=== PATIENT | female | born 1955 | race Caucasian/White ===

== ENCOUNTER 2020-04-21 04:33 | Inpatient (IN) ==
[2020-04-21] MEDS ORDERED: IOPAMIDOL 100 ML BOTTLE IV ONE (04:34)
--- NOTE | 2020-04-21 05:09 | XRay Report ---
CLINICAL INFORMATION: Chest Pain COMPARISON: Two view chest x-ray 09/26/2016 FINDINGS: The heart is normal for technique. Mediastinum and pulmonary vessels are normal. Lungs are clear. No effusions. IMPRESSION: Negative Interpreted and Authenticated by: Hans Saldivar 04/21/20
[2020-04-21 05:29] LABS: Basophils # (Auto) 0.05 K/mcL (0.00-0.30); Basophils % (Auto) 0.8 % (0.0-2.0); Eosinophils # (Auto) 0.24 K/mcL (0.00-0.70); Eosinophils % (Auto) 4.1 % (0.0-7.0); Granulocytes % (Auto) 58.8 % (38.0-78.0); Hematocrit 23.2 % (34.1-44.9); Hemoglobin 6.3 g/dL (11.2-15.7); Lymphocytes # (Auto) 1.64 K/mcL (1.50-4.80); Lymphocytes % (Auto) 27.7 % (15.5-49.0); Mean Cell Volume 74.4 fL (80.0-100.0); Mean Corpuscular HGB Conc 27.2 g/dL (31.0-36.0); Mean Platelet Volume 9.7 fL (7.4-10.4); Monocytes # (Auto) 0.51 K/mcL (0.10-0.90); Monocytes % (Auto) 8.6 % (1.0-12.0); Platelet Count 316 K/mcL (140-440); RBC 3.12 M/mcL (3.59-5.38); Red Cell Distribution Width 17.3 % (11.5-14.5); WBC 5.9 K/mcL (4.50-11.00)
[2020-04-21 05:43] LABS: ALT/SGPT 10 U/l (0-40); AST/SGOT 19 U/l (0-37); Albumin 3.5 gm/dL (3.2-5.2); Albumin/Globulin Ratio 1.3 (1.0-2.3); Alkaline Phosphatase 157 U/L (39-117); Bilirubin,Total 0.3 mg/dL (0.0-1.0); Blood Urea Nitrogen 14 mg/dl (8-23); Calcium 8.8 mg/dl (8.6-10.4); Carbon Dioxide 23 mmol/L (22-30); Chloride 104 mmol/L (96-108); Globulin 2.6 gm/dL (2.2-3.7); Glomerular Filtration Rate 52; Glucose 98 mg/dL (70-105)
[2020-04-21] MEDS ORDERED: PHENobarb/HYOSCY/ATROPINE/SCOP 1 DOSE BOTTLE PO ONE (05:54)
[2020-04-21] MEDS ORDERED: PANTOPRAZOLE 40 MG VIAL IV ONE ×3 (05:54→20:37)
--- NOTE | 2020-04-21 05:57 | Emergency Department Note ---
Chest Pain HPI - General Chief Complaint: Chest Pain Stated Complaint: chest pain Time Seen by Provider: 04/21/20 05:16 Source: patient Mode of arrival: ambulatory Limitations: no limitations - History of Present Illness HPI Narrative: This pleasant 64-year-old awoke around 130 or 2 with chest pain that is at the bottom of her sternum area or epigastric area and she rates it now 6/10 and still having it. She thought it was heartburn or indigestion. There is some radiation to the left shoulder but no radiation to the neck, jaw, back or down the arm. There is some accompanying shortness of breath. She called EMS which did an EKG that was okay/unremarkable. She then drove herself here. It is hard to take a deep breath due to discomfort. Tums did not make any difference in her pains. No prior history of myocardial infarction or stroke. - Related Data Home Medications Medication Instructions Recorded Confirmed Naproxen Sodium 440 mg PO TID PRN 04/21/20 04/21/20 Previous Rx's Medication Instructions Recorded aripiprazole 30 mg tablet 30 mg PO QHS #30 tab 01/25/20 clonazepam 2 mg tablet 4 mg PO QHS #60 tab 01/25/20 lamotrigine 200 mg tablet 200 mg PO QHS #30 tab 01/25/20 Allergies Allergy/AdvReac Type Severity Reaction Status Date / Time codeine Allergy Severe Swelling Verified 03/29/20 14:25 of Lip/Tongue/Throat Review of Systems Constitutional: Reports: chills (Just this last night.). Denies: fever, sweats ENT ED: Denies: throat pain, rhinorrhea Cardiovascular: Denies: palpitations Respiratory: Denies: cough, wheezes Gastrointestinal: Denies: abdominal pain, nausea, vomiting, diarrhea, constipation Musculoskeletal: Reports: other (Because of pain in the left ankle foot area from surgery this last December she uses a cane. Has had some extremity swelling more in the left side than the right she again attributes to the previous ankle fracture and surgery. This is attended to by Dr. Lockett, [facility].). Denies: back pain Neurological: Denies: headache, weakness, dizziness Hematological/Lymphatic: Reports: other (Denies history of iron deficiency or taking iron but iron deficiency anemia is in her problem list.) Chest Pain PMH - Past Medical History [facility] Narrative: Medical History (Last Updated 04/21/20 @ 05:28 by Tj Mejia DO) Generalized anxiety disorder (Chronic) History of panic attacks (Inactive) PTSD (post-traumatic stress disorder) (Chronic) Bipolar II disorder (Chronic) Hypertension (Chronic) Iron deficiency anemia (Chronic) Acute onset of severe vertigo (Resolved) DNR per pt discussion 04/21/2020 Past Surgical History (Last Updated 04/21/20 @ 06:00 by Tj Mejia DO) History of cholecystectomy (Acute) History of gastric bypass (Chronic 1996) Family History (Last Reviewed 03/29/20 @ 14:25 by Chin Perez MD) Father Myocardial infarction Heart disease Mother Malignant tumor of colon Sister Alcohol abuse Medical history: Reports: hypertension Psychiatric history: Reports: bipolar - Social History smoking status: Never smoker Alcohol use: Reports: None Drug use: Reports: none. Denies: marijuana Physical Exam Limitations: no limitations General appearance: alert, in no apparent distress, nontoxic, other (morbidly overweight, mostly abdominal.) Head: atraumatic, normocephalic Eye: Present: EOMI ENT: Present: mucous membranes moist Neck: Present: trachea midline. Absent: lymphadenopathy, thyromegaly Chest: Present: symmetric chest wall rise Respiratory: Present: normal lung sounds bilaterally. Absent: respiratory distress, wheezes, stridor, accessory muscle use, prolonged expiratory phase Cardiovascular: Present: regular rate, normal rhythm. Absent: tachycardia, systolic murmur, diastolic murmur Abdominal: Present: soft, tenderness ( subjective to palpation). Absent: distention, guarding, rebound, rigidity, organomegaly, mass Abdominal tenderness: Present: epigastrium, mild Rectal: Present: heme (-) stool, hemorrhoids (External with old clotted fibrosed at 12:00 moderate to large). Absent: decreased rectal tone, black stool, bloody stool, fecal impaction Extremities: Present: pedal edema (Slight or mild). Absent: pretibial edema, calf tenderness, cyanosis, clubbing Back: Absent: CVA tenderness (R), CVA tenderness (L), spinous process tenderness Neurological: Present: alert, oriented X3 Psychiatric: Present: normal affect, normal mood, polite, pleasant. Absent: depressed, agitated, anxious, poor eye contact Skin: Present: warm, dry Course Vital Signs Temperature 98.0 F 04/21/20 04:33 Pulse Rate 73 04/21/20 04:33 Respiratory Rate 17 04/21/20 04:33 Blood Pressure 189/94 04/21/20 04:33 Pulse Oximetry (%) 99 04/21/20 04:33 Temperature 98.0 F 04/21/20 04:33 Pulse Rate 65 04/21/20 09:31 Respiratory Rate 17 04/21/20 04:33 Blood Pressure 176/81 04/21/20 09:31 Pulse Oximetry (%) 94 04/21/20 09:31 Chest Pain - [facility] [place] Narrative Medical decision making narrative: 5:30 AM - interviewed and examined. ACS labs, EKG, chest x-ray have been initiated already. Chest x-ray officially read as negative. EKG without ACS; normal sinus rhythm. 5:29 AM - hemoglobin of 6.3 called to department. 2 units typed and crossed ordered. Patient denies being on iron or remembering being on iron in the past. Pulse is 66. She remains hypertensive. 5:50 AM - rectal exam reveals a nodular hemorrhoid at 12:00 that is moderate in size. No anal rectal masses palpable. Stool residue is [id number] and soft and negative for Hemoccult. 5:53 AM - patient describes taking Aleve 2 pills 3 times a day since she had her foot worked on. She has no history of blood in her stools or black tarry stools or knowledge that she remembers of iron deficiency anemia. We will do Protonix IV bolus and a GI cocktail. 6:27 AM - GI cocktail did not help her at all. Still has pain if she takes a deep breath in the epigastrium area. Because of this I am adding a lipase and a CT scan of the abdomen. 7:07 AM - Serial (2nd ) troponin and repeat (trend) CBC ordered. 8:30 AM approximately - CT exam demonstrates some fluid around early small bowel area. Consideration for perforated ulcer. Suggested upper GI with nonionic contrast material. I will try to discuss with general surgeon. 8:45 AM - second troponin was negative. Patient reporting that her pain is improved but still present. EKG ordered. 9:15 AM - EKG demonstrates similar to previous, no ACS. Patient looks and acts well and vitals remained fairly stable with some hypertension. Call out to Dr. Gerber to discuss the findings of the CT scan. 10:00 AM approximately - patient expressed willingness to be in the hospital with seen need for additional work-up and monitoring. I reviewed findings with Dr. Gerber, general surgeon, via telephone. He is willing to accept patient. I am putting in transition orders for him. He requests a PPI drip, n.p.o., nausea medication. These were ordered. CBC ordered for half hour after last packed RBC infusion. I discussed with patient end-of-life decisions and preferences. She reports that they have not filled out with an attorney law clerk a directive to physicians or end of life document. However she and her have filled out DNR paperwork; do not want intubation or aggressive resuscitation. - Lab Data Result diagrams: 04/21/20 07:35 04/21/20 04:40 Lab Results 04/21/20 04/21/20 04/21/20 Range/Units 04:40 04:40 04:40 WBC 5.9 (4.50-11.00) K/mcL RBC 3.12 L (3.59-5.38) M/mcL Hgb 6.3 L* (11.2-15.7) g/dL Hct 23.2 L (34.1-44.9) % MCV 74.4 L (80.0-100.0) fL MCH 20.2 L (26.0-34.0) pg MCHC 27.2 L (31.0-36.0) g/dL RDW 17.3 H (11.5-14.5) % Plt Count 316 (140-440) K/mcL MPV 9.7 (7.4-10.4) fL Gran % 58.8 (38.0-78.0) % Lymph % (Auto) 27.7 (15.5-49.0) % Gentry % (Auto) 8.6 (1.0-12.0) % Eos % (Auto) 4.1 (0.0-7.0) % Baso % (Auto) 0.8 (0.0-2.0) % Gran # 3.47 (1.80-8.00) K/mcL Lymph # (Auto) 1.64 (1.50-4.80) K/mcL Gentry # (Auto) 0.51 (0.10-0.90) K/mcL Eos # (Auto) 0.24 (0.00-0.70) K/mcL Baso # (Auto) 0.05 (0.00-0.30) K/mcL Sodium 137 (133-145) mmol/L Potassium 3.8 (3.3-5.1) mmol/L Chloride 104 (96-108) mmol/L Carbon Dioxide 23 (22-30) mmol/L Anion Gap 10.0 (8-16) BUN 14 (8-23) mg/dl Creatinine 1.1 (0.6-1.1) mg/dl GFR Calculation 52 Glucose 98 (70-105) mg/dL Calcium 8.8 (8.6-10.4) mg/dl Total Bilirubin 0.3 (0.0-1.0) mg/dL AST 19 (0-37) U/l ALT 10 (0-40) U/l Alkaline Phosphatase 157 H (39-117) U/L Troponin T < 0.01 (0-0.03) ng/ml Total Protein 6.1 (5.9-8.4) gm/dL Albumin 3.5 (3.2-5.2) gm/dL Globulin 2.6 (2.2-3.7) gm/dL Albumin/Globulin Ratio 1.3 (1.0-2.3) Lipase (7-60) U/L 04/21/20 04/21/20 04/21/20 Range/Units 04:40 07:35 07:35 WBC 9.0 (4.50-11.00) K/mcL RBC 3.06 L (3.59-5.38) M/mcL Hgb 6.3 L* (11.2-15.7) g/dL Hct 23.4 L (34.1-44.9) % MCV 76.5 L (80.0-100.0) fL MCH 20.6 L (26.0-34.0) pg MCHC 26.9 L (31.0-36.0) g/dL RDW 17.4 H (11.5-14.5) % Plt Count 327 (140-440) K/mcL MPV 10.3 (7.4-10.4) fL Gran % 77.5 (38.0-78.0) % Lymph % (Auto) 14.9 L (15.5-49.0) % Gentry % (Auto) 6.3 (1.0-12.0) % Eos % (Auto) 1.0 (0.0-7.0) % Baso % (Auto) 0.3 (0.0-2.0) % Gran # 7.00 (1.80-8.00) K/mcL Lymph # (Auto) 1.35 L (1.50-4.80) K/mcL Gentry # (Auto) 0.57 (0.10-0.90) K/mcL Eos # (Auto) 0.09 (0.00-0.70) K/mcL Baso # (Auto) 0.03 (0.00-0.30) K/mcL Sodium (133-145) mmol/L Potassium (3.3-5.1) mmol/L Chloride (96-108) mmol/L Carbon Dioxide (22-30) mmol/L Anion Gap (8-16) BUN (8-23) mg/dl Creatinine (0.6-1.1) mg/dl GFR Calculation Glucose (70-105) mg/dL Calcium (8.6-10.4) mg/dl Total Bilirubin (0.0-1.0) mg/dL AST (0-37) U/l ALT (0-40) U/l Alkaline Phosphatase (39-117) U/L Troponin T < 0.01 (0-0.03) ng/ml Total Protein (5.9-8.4) gm/dL Albumin (3.2-5.2) gm/dL Globulin (2.2-3.7) gm/dL Albumin/Globulin Ratio (1.0-2.3) Lipase 91 H (7-60) U/L Disposition Pt seen by MEDICAL WRITER/PA only: No Clinical Impression: Anemia due to blood loss, chronic, NSAID induced gastritis, Epigastric pain Disposition: Xfer As Inpt ([facility]) Condition: Serious Referrals: Hollis Crump MD [Primary Care Provider] -
--- NOTE | 2020-04-21 08:24 | Cat Scan Report ---
CLINICAL INFORMATION: Epigastric pain COMPARISON: Chest CT 12/24/2018 TECHNIQUE: Following enteric contrast, 80 cc of Isovue-370 were injected intravenously, and 60 seconds later, 0.625 mm helical slices were obtained from the mid heart through the subtrochanteric regions. Following reconstruction, 2.5 mm sagittal, coronal and axial reformatted images were processed and reviewed at bone, lung and soft tissue windows. Five minutes later, 0.625 mm helical slices were obtained from the mid heart through the kidneys and viewed at soft tissue windows.The exam was performed using radiation dose optimization techniques including, but not limited to, automated exposure control, adjustment of the mA and/or kV according to patient size and use of iterative reconstruction technique. FINDINGS: Lung bases show no abnormality - no effusion. The visualized heart is grossly normal. Abdominal images show minimal fatty change of the liver. Mild portal triad edema has developed since previous CT. No focal hepatic lesion. The gallbladder is surgically absent. Intrahepatic and extrahepatic ducts are normal caliber -CBD is 5 mm. Both kidneys, adrenal glands, spleen, pancreas and aorta, including aortic branches, are normal in size, configuration and attenuation without focal lesion. Pelvic images show urinary bladder is normal. Anteflexed uterus is mildly enlarged: 9.5 x 3 cm. Both ovaries are normal. Mark-en-Y gastric bypass appears grossly normal.. On today's exam, a small amount of free intraperitoneal fluid is adjacent to the greater curvature of the stomach with a second collection adjacent to the descending duodenum. There is no free air. The small and large bowel unremarkable. An 8 x 5 cm thin-walled fluid collection is seen in the deep subcutaneous fat overlying the L2-3 spinous processes are midline. It is likely a seroma. Left L4-5 and left L5-S1 laminectomy changes noted changes appreciated. At L5-S1 moderate broad disc spur complex results in moderate bilateral IV foraminal narrowing impinging exiting L5 nerve roots IMPRESSION: 1. Moderate free intraperitoneal fluid adjacent to the greater curvature of the bypassed stomach with a smaller amount adjacent to the descending duodenum. History of epigastric pain is acknowledged. The possibility of inflammation or small GI tract perforation should be entertained. Suggest positive enteric contrast and repeat scan through the stomach and duodenum to determine the presence of extravasation or perforation in the upper GI tract. 2. Mild portal triad edema - new. This finding is typically related to elevated right heart pressures or primary hepatopathy such as hepatitis. Please correlate with LFTs and cardiac history. 3. 7 cm thin-walled fluid collection deep subcutaneous fat overlying the L2 and L3 spinous processes likely a seroma. Interpreted and Authenticated by: Hans Saldivar 04/21/20
[2020-04-21 08:40] LABS: Basophils # (Auto) 0.03 K/mcL (0.00-0.30); Basophils % (Auto) 0.3 % (0.0-2.0); Eosinophils # (Auto) 0.09 K/mcL (0.00-0.70); Granulocytes % (Auto) 77.5 % (38.0-78.0); Hematocrit 23.4 % (34.1-44.9); Hemoglobin 6.3 g/dL (11.2-15.7); Lymphocytes # (Auto) 1.35 K/mcL (1.50-4.80); Lymphocytes % (Auto) 14.9 % (15.5-49.0); Mean Cell Volume 76.5 fL (80.0-100.0); Mean Corpuscular HGB Conc 26.9 g/dL (31.0-36.0); Mean Platelet Volume 10.3 fL (7.4-10.4); Monocytes # (Auto) 0.57 K/mcL (0.10-0.90); Monocytes % (Auto) 6.3 % (1.0-12.0); Platelet Count 327 K/mcL (140-440); RBC 3.06 M/mcL (3.59-5.38); Red Cell Distribution Width 17.4 % (11.5-14.5)
[2020-04-21] MEDS ORDERED: ONDANSETRON 4 MG/2 ML VIAL IV PRN ×2 (10:02→16:59)
[2020-04-21] MEDS: PANTOPRAZOLE 80 MG in 0.9 % SODIUM CHLORIDE 100 ML IV SCH ×2 (11:03→20:23)
[2020-04-21 13:15] LABS: Basophils # (Auto) 0.03 K/mcL (0.00-0.30); Basophils % (Auto) 0.4 % (0.0-2.0); Eosinophils # (Auto) 0.09 K/mcL (0.00-0.70); Eosinophils % (Auto) 1.3 % (0.0-7.0); Granulocytes % (Auto) 72.3 % (38.0-78.0); Hematocrit 28.3 % (34.1-44.9); Hemoglobin 8.1 g/dL (11.2-15.7); Lymphocytes # (Auto) 1.31 K/mcL (1.50-4.80); Lymphocytes % (Auto) 18.3 % (15.5-49.0); Mean Cell Volume 76.9 fL (80.0-100.0); Mean Corpuscular HGB Conc 28.6 g/dL (31.0-36.0); Mean Platelet Volume 9.6 fL (7.4-10.4); Monocytes # (Auto) 0.55 K/mcL (0.10-0.90); Monocytes % (Auto) 7.7 % (1.0-12.0); Platelet Count 296 K/mcL (140-440); RBC 3.68 M/mcL (3.59-5.38); Red Cell Distribution Width 17.7 % (11.5-14.5); WBC 7.2 K/mcL (4.50-11.00)
[2020-04-21] MEDS: 0.9 % SODIUM CHLORIDE 1,000 ML IV SCH ×2 (13:51→23:38)
--- NOTE | 2020-04-21 14:59 | General Surg History&Physical ---
History of Present Illness Patient information: Note initiated : 04/21/20 at 2:57 pm Service Date, if different from initiated Date: [] Patient: Herminia Mckee a 64 y/o F admitted on 04/21/20 for chest pain. Chief Complaint: [] HPI: Ms. Mckee is a 64 year old F admitted for evaluation of upper abdominal pain and CT evidence of fluid along the greater curvature of the stomach. The patient states that she was awaken with bilateral upper abdominal pain in the subcostal regions early this morning. She did not have nausea. She took 4 Tums but did not have any improvement so she was seen in the emergency room. At the time of onset she had some pain with deep breathing. She has not had any previous episodes of abdominal pain and her bowel movements have been normal. She denies melena. She does have a history of chronic anemia which has been evaluated by upper endoscopy and colonoscopy. The patient has been taken 6 Aleve per day for chronic left foot pain since December.. She is clinically better at this time. The CT shows the fluid but there is no free air. She will be treated nonoperatively unless she has any worsening condition. Review of Systems - Constitutional weakness, weight gain - EENT Nose, mouth and throat: no dysphagia, no headache(s), no vertigo - Cardiovascular edema, leg edema, no claudication, no dyspnea on exertion - Respiratory pain on inspirtation, pain with cough, no cough, no dyspnea, no wheezing, no chest congestion - Gastrointestinal abdominal pain, dyspepsia, heartburn, no nausea, no vomiting - Musculoskeletal no arthralgias, no back pain, no stiffness - Integumentary no new lesions, no pruritus, no rash - Neurological no abnormal gait, no convulsions, no headache(s), no tremor(s), no weakness - Psychiatric anxiety, depression, mood swings - Endocrine no fatigue, no increase in ring/shoe/hat size, no palpitations - Hematologic/Lymphatic no easy bleeding, no easy bruising, no lymphadenopathy - Allergic/Immunologic no tongue swelling, no throat swelling, no uticaria, no wheezing, no lip swelling Past History Past medical history: Bipolar disorder Hypertension Iron deficiency anemia Past surgical history: Mark-en-Y gastric bypass 1996 Cholecystectomy 1996 L4-5 L5-S1 laminectomy 2015 Past family history: Mother colon cancer age 79 Father due to coronary artery disease age 82 Past social history: Never smoker Denies alcohol use Denies drug use Medications and Allergies Home Medications Medication Instructions Recorded Confirmed Type aripiprazole 30 mg tablet 30 mg PO QHS #30 tab 01/25/20 04/21/20 Rx clonazepam 2 mg tablet 4 mg PO QHS #60 tab 01/25/20 04/21/20 Rx lamotrigine 200 mg tablet 200 mg PO QHS #30 tab 01/25/20 04/21/20 Rx Naproxen Sodium 440 mg PO TID PRN 04/21/20 04/21/20 History Allergies Allergy/AdvReac Type Severity Reaction Status Date / Time codeine Allergy Severe Swelling Verified 04/21/20 13:58 of Lip/Tongue/Throat Exam Temp Pulse Resp BP Pulse Ox 98.7 F 69 18 172/84 96 04/21/20 14:45 04/21/20 14:45 04/21/20 14:45 04/21/20 14:45 04/21/20 14:45 - General physical appearance well developed, well nourished, no distress, obese - Eyes PERRL, normal ocular movement - ENT normal pinna, normal nares, normal mucosa, no hearing loss, no congestion - Head Head exam IM: Present: atraumatic, normocephalic - Neck no masses, no bruits, trachea midline, no lymphadenopathy, no venous distension - Cardiovascular Cardiovascular exam IM: Present: normal rate and rhythm, RRR, +S1, +S2. Absent: JVD, tachycardia - Respiratory normal expansion, normal respiratory effort, clear to auscultation - Abdomen Abdomen: Present: soft, tender (epigastric and bilateral upper abdominal tenderness), bowel sounds Hernia: Present: none - Genitourinary Present: normal external genitalia - Rectum Rectum: Present: normal sphincter tone, no hemorrhoids, no tenderness, no masses, no bleeding - Integumentary Present: no rash, no growths, no abnormal pigmentation - Neurologic Present: normal coordination, normal sensation - Musculoskeletal Present: normal gait, normal posture - Psychiatric Present: oriented to time, oriented to person, oriented to place, speech is normal, memory intact Assessment and Plan (1) Abdominal pain, acute, epigastric Pantoprazole 40 mg IV twice a day Carafate 1 g 4 times daily Bowel rest upper endoscopy if symptoms progress Status: Acute (2) Morbid obesity Status: Chronic (3) PTSD (post-traumatic stress disorder) Continue home maintenance medications Status: Chronic (4) Bipolar II disorder Continue home maintenance medications Status: Chronic Comment: Most recent episode depressed (5) Hypertension Status: Chronic (6) Iron deficiency anemia Status: Chronic Qualifiers: Iron deficiency anemia type: other iron deficiency Qualified Code(s): D50.8 - Other iron deficiency anemias
[2020-04-21] MEDS: HYDROmorphone 1 MG/ML SYRINGE IV PRN (18:01)
[2020-04-21] MEDS: SUCRALFATE 1 GM/10 ML ORAL.SUSP PO SCH ×2 (18:01→23:38)
[2020-04-21] MEDS: clonazePAM 1 MG TABLET PO SCH (20:22)
[2020-04-21] MEDS: lamoTRIgine 100 MG TABLET PO SCH (20:23)
[2020-04-21] MEDS: ARIPIPRAZOLE 20 MG TABLET PO SCH (20:49)
[2020-04-22] MEDS: SUCRALFATE 1 GM/10 ML ORAL.SUSP PO SCH ×4 (06:00→23:44)
[2020-04-22] MEDS ORDERED: PANTOPRAZOLE 40 MG VIAL IV ONE (06:12)
[2020-04-22] MEDS: PANTOPRAZOLE 80 MG in 0.9 % SODIUM CHLORIDE 100 ML IV SCH ×2 (06:27→16:40)
[2020-04-22 06:33] LABS: Basophils # (Auto) 0.04 K/mcL (0.00-0.30); Basophils % (Auto) 0.6 % (0.0-2.0); Eosinophils # (Auto) 0.16 K/mcL (0.00-0.70); Eosinophils % (Auto) 2.6 % (0.0-7.0); Granulocytes % (Auto) 67.8 % (38.0-78.0); Hemoglobin 7.5 g/dL (11.2-15.7); Lymphocytes # (Auto) 1.21 K/mcL (1.50-4.80); Lymphocytes % (Auto) 19.6 % (15.5-49.0); Mean Cell Volume 79.6 fL (80.0-100.0); Mean Corpuscular HGB Conc 27.8 g/dL (31.0-36.0); Mean Platelet Volume 9.9 fL (7.4-10.4); Monocytes # (Auto) 0.58 K/mcL (0.10-0.90); Monocytes % (Auto) 9.4 % (1.0-12.0); Platelet Count 263 K/mcL (140-440); RBC 3.39 M/mcL (3.59-5.38); WBC 6.2 K/mcL (4.50-11.00)
[2020-04-22 06:48] LABS: ALT/SGPT 8 U/l (0-40); AST/SGOT 12 U/l (0-37); Albumin 3.1 gm/dL (3.2-5.2); Albumin/Globulin Ratio 1.3 (1.0-2.3); Alkaline Phosphatase 144 U/L (39-117); Bilirubin,Direct < 0.2 mg/dL (0.0-0.3); Bilirubin,Total 0.6 mg/dL (0.0-1.0); Blood Urea Nitrogen 12 mg/dl (8-23); Calcium 8.4 mg/dl (8.6-10.4); Carbon Dioxide 21 mmol/L (22-30); Chloride 108 mmol/L (96-108); Globulin 2.4 gm/dL (2.2-3.7); Glomerular Filtration Rate 59; Glucose 85 mg/dL (70-105); Lactate Dehydrogenase 180 U/L (94-250); Phosphorous 2.4 mg/dL (2.7-4.5); Triglycerides 70 mg/dl (<150); Uric Acid 4.3 mg/dL (2.5-8.0)
[2020-04-22] MEDS ORDERED: 0.9 % SODIUM CHLORIDE 250 ML IV SCH (08:00)
[2020-04-22] MEDS: hydrALAZINE 20 MG/ML VIAL IV PRN ×3 (11:49→20:39)
--- NOTE | 2020-04-22 13:44 | General Surgery Progress Note ---
Subjective Patient reports: feels better, pain is less, no flatus, bowel movement, afebrile Narrative: Note initiated : 04/22/20 at 1:42 pm Service Date, if different from initiated Date: [] Patient: Herminia Mckee a 64 y/o F admitted on 04/21/20 for chest pain. Chief Complaint: [patient is doing well. She has not had any nausea. She has mild upper abdominal tenderness but states that she feels better. Her hemo globin has decreased to 7.5 but she has not had any black or bloody bowel movements. White blood count 6.2, hemoglobin 7.5, hematocrit 27, BUN 12, creatinine 1.] Objective Temp Pulse Resp BP Pulse Ox 98.2 F 69 20 175/94 96 04/22/20 11:20 04/22/20 11:20 04/22/20 11:20 04/22/20 11:20 04/22/20 11:20 - Additional Data Intake & Output - Last 24 hours: Intake & Output 04/20/20 04/21/20 04/22/20 04/23/20 05:59 05:59 05:59 05:59 Intake Total 1871 100 Output Total 750 900 Balance 1121 -800 Weight 285 lb 281 lb 12.8 oz - General physical appearance well developed, well nourished, no distress - Eyes PERRL, normal ocular movement - ENT normal pinna, normal nares, normal mucosa, no hearing loss, no congestion - Neck no masses, no bruits, trachea midline, no lymphadenopathy, no venous distension - Respiratory normal expansion, normal respiratory effort, clear to auscultation - Cardiovascular Cardiovascular exam: Present: normal rate and rhythm, RRR, +S1, +S2. Absent: JVD, tachycardia - Abdomen tender (mild tenderness in upper abdomen bilaterally but without distention;), bowel sounds (present), surgical scars (none), masses (none) - Integumentary no rash, no growths, no abnormal pigmentation - Neurologic normal coordination, normal sensation - Musculoskeletal normal gait, normal posture - Psychiatric oriented to time, oriented to person, oriented to place, speech is normal, memory intact - Labs 04/22/20 05:11 04/22/20 05:11 Diabetes panel 04/22/20 Range/Units 05:11 Sodium 139 (133-145) mmol/L Potassium 3.4 (3.3-5.1) mmol/L Chloride 108 (96-108) mmol/L Carbon Dioxide 21 L (22-30) mmol/L BUN 12 (8-23) mg/dl Creatinine 1.0 (0.6-1.1) mg/dl Glucose 85 (70-105) mg/dL Calcium 8.4 L (8.6-10.4) mg/dl AST 12 (0-37) U/l ALT 8 (0-40) U/l Alkaline Phosphatase 144 H (39-117) U/L Total Protein 5.5 L (5.9-8.4) gm/dL Albumin 3.1 L (3.2-5.2) gm/dL Triglycerides 70 (<150) mg/dl Calcium panel 04/22/20 Range/Units 05:11 Calcium 8.4 L (8.6-10.4) mg/dl Phosphorus 2.4 L (2.7-4.5) mg/dL Albumin 3.1 L (3.2-5.2) gm/dL Pituitary panel 04/22/20 Range/Units 05:11 Sodium 139 (133-145) mmol/L Potassium 3.4 (3.3-5.1) mmol/L Chloride 108 (96-108) mmol/L Carbon Dioxide 21 L (22-30) mmol/L BUN 12 (8-23) mg/dl Creatinine 1.0 (0.6-1.1) mg/dl Glucose 85 (70-105) mg/dL Calcium 8.4 L (8.6-10.4) mg/dl Adrenal panel 04/22/20 Range/Units 05:11 Sodium 139 (133-145) mmol/L Potassium 3.4 (3.3-5.1) mmol/L Chloride 108 (96-108) mmol/L Carbon Dioxide 21 L (22-30) mmol/L BUN 12 (8-23) mg/dl Creatinine 1.0 (0.6-1.1) mg/dl Glucose 85 (70-105) mg/dL Calcium 8.4 L (8.6-10.4) mg/dl Total Bilirubin 0.6 (0.0-1.0) mg/dL AST 12 (0-37) U/l ALT 8 (0-40) U/l Alkaline Phosphatase 144 H (39-117) U/L Total Protein 5.5 L (5.9-8.4) gm/dL Albumin 3.1 L (3.2-5.2) gm/dL Assessment and Plan (1) Abdominal pain, acute, epigastric Status: Acute Assessment and plan: Patient is clinically improved and will be advanced to a clear diet Current Visit: Yes (2) Morbid obesity Status: Chronic Current Visit: No (3) PTSD (post-traumatic stress disorder) Status: Chronic Current Visit: No (4) Bipolar II disorder Problem details: Most recent episode depressed Status: Chronic Current Visit: No (5) Hypertension Status: Chronic Current Visit: No (6) Iron deficiency anemia Status: Chronic Current Visit: No - Time Spent With Patient Total time spent is greater than 50% in coordination of care (as documented) at patient's floor/unit and/or counseling patient:
[2020-04-22] MEDS: 0.9 % SODIUM CHLORIDE 1,000 ML IV SCH (15:16)
[2020-04-22] MEDS: HYDROmorphone 1 MG/ML SYRINGE IV PRN ×2 (16:35→20:39)
[2020-04-22] MEDS: clonazePAM 1 MG TABLET PO SCH (20:40)
[2020-04-22] MEDS: ARIPIPRAZOLE 20 MG TABLET PO SCH (20:40)
[2020-04-22] MEDS: lamoTRIgine 100 MG TABLET PO SCH (20:40)
[2020-04-23] MEDS: 0.9 % SODIUM CHLORIDE 1,000 ML IV SCH ×3 (01:34→11:40)
[2020-04-23] MEDS: PANTOPRAZOLE 80 MG in 0.9 % SODIUM CHLORIDE 100 ML IV SCH ×2 (02:55→12:15)
[2020-04-23] MEDS: HYDROmorphone 1 MG/ML SYRINGE IV PRN ×2 (03:05→09:56)
[2020-04-23] MEDS: SUCRALFATE 1 GM/10 ML ORAL.SUSP PO SCH ×2 (05:49→12:14)
[2020-04-23 07:18] LABS: Basophils # (Auto) 0.04 K/mcL (0.00-0.30); Basophils % (Auto) 0.5 % (0.0-2.0); Eosinophils # (Auto) 0.19 K/mcL (0.00-0.70); Eosinophils % (Auto) 2.2 % (0.0-7.0); Granulocytes % (Auto) 74.5 % (38.0-78.0); Hematocrit 33.8 % (34.1-44.9); Hemoglobin 9.7 g/dL (11.2-15.7); Lymphocytes # (Auto) 1.15 K/mcL (1.50-4.80); Lymphocytes % (Auto) 13.5 % (15.5-49.0); Mean Cell Volume 80.3 fL (80.0-100.0); Mean Corpuscular HGB Conc 28.7 g/dL (31.0-36.0); Mean Platelet Volume 9.5 fL (7.4-10.4); Monocytes # (Auto) 0.79 K/mcL (0.10-0.90); Monocytes % (Auto) 9.3 % (1.0-12.0); Platelet Count 270 K/mcL (140-440); RBC 4.21 M/mcL (3.59-5.38); Red Cell Distribution Width 18.5 % (11.5-14.5); WBC 8.5 K/mcL (4.50-11.00)
[2020-04-23] MEDS: hydrALAZINE 20 MG/ML VIAL IV PRN (07:18)
[2020-04-23 07:39] LABS: ALT/SGPT 8 U/l (0-40); AST/SGOT 15 U/l (0-37); Albumin 3.2 gm/dL (3.2-5.2); Albumin/Globulin Ratio 1.2 (1.0-2.3); Alkaline Phosphatase 154 U/L (39-117); Bilirubin,Direct 0.2 mg/dL (0.0-0.3); Bilirubin,Total 0.7 mg/dL (0.0-1.0); Blood Urea Nitrogen 8 mg/dl (8-23); Calcium 8.5 mg/dl (8.6-10.4); Carbon Dioxide 20 mmol/L (22-30); Chloride 107 mmol/L (96-108); Globulin 2.6 gm/dL (2.2-3.7); Glomerular Filtration Rate 77; Glucose 80 mg/dL (70-105); Lactate Dehydrogenase 204 U/L (94-250); Triglycerides 45 mg/dl (<150); Uric Acid 3.8 mg/dL (2.5-8.0)
[2020-04-23 07:41] LABS: Phosphorous 2.2 mg/dL (2.7-4.5)
[2020-04-23] MEDS ORDERED: MAGNESIUM HYDROXIDE 30 ML ORAL.SUSP PO PRN (10:27)
--- NOTE | 2020-04-23 13:46 | Discharge Summary ---
Providers - Providers Patient information: Note initiated : 04/23/20 at 1:43 pm Service Date, if different from initiated Date: [] Patient: Herminia Mckee 64 y/o F admitted on 04/21/20 for chest pain. Chief Complaint: [] Date of admission: 04/21/20 Discharge date: 04/23/20 Attending physician: Tristin Gerber Hospitalization Hospital Course: 64-year-old female admitted for evaluation and treatment of upper abdominal pain with CT evidence of fluid along the greater curvature of the stomach. The patient gives a history of being awakened in her sleep, bilateral upper abdominal pain in the subcostal region on the morning of admission. She did not have nausea. She tried [id number] medications without improvement. She has some pain with deep breathing. She has a history of chronic anemia which has been evaluated by upper endoscopy and colonoscopy in the past. The patient has been taken 6 Aleve per day for chronic left foot pain since December. There was no evidence of free air. It was felt that the patient had a gastric ulcer with the microperforation. She was treated nonoperatively with pantoprazole and Carafate. She remained stable. White blood count did not increase. She is clinically stable today without discomfort. She will be discharged home on Protonix and Carafate with plans to schedule endoscopy as an outpatient. Discharge diagnosis: acute gastric ulcer Secondary discharge diagnosis: Posttraumatic stress disorder Bipolar 2 disorder Hypertension Chronic iron deficiency anemia Reason for admission: severe abdominal pain with free fluid in the perigastric region Procedures: None Pertinent studies/significant findings: CT of abdomen and pelvis with contrast Complications: None Exam Temp Pulse Resp BP Pulse Ox 98.1 F 76 16 172/89 95 04/23/20 12:00 04/23/20 12:04/23/20 12:04/23/20 12:04/23/20 12:00 - General physical appearance well developed, well nourished, no distress - Eyes PERRL, normal ocular movement - ENT normal pinna, normal nares, normal mucosa, no hearing loss, no congestion - Head Head exam IM: Present: atraumatic, normocephalic - Neck no masses, no bruits, trachea midline, no lymphadenopathy, no venous distension - Cardiovascular Cardiovascular exam IM: Present: normal rate and rhythm - Respiratory normal expansion, normal respiratory effort, clear to percussion, clear to auscultation - Abdomen Abdomen: Present: soft, tender (mild tenderness in epigastrium without guarding or rebound; good active bowel sounds), bowel sounds Hernia: Present: none - Genitourinary Present: normal external genitalia - Integumentary Present: no rash, no growths, no abnormal pigmentation - Neurologic Present: normal coordination, normal sensation - Musculoskeletal Present: normal gait, normal posture - Psychiatric Present: oriented to time, oriented to person, oriented to place, speech is normal, memory intact Discharge Plan - Patient/Caregiver Discharge Instructions Activity: increase activity as tolerated Diet: Regular Diet - Follow up Plan Follow up with: Hollis Crump MD [Primary Care Provider] - Tristin Gerber MD [Physician] - (The office for follow-up in 2 weeks) Disposition: Home, Self-Care Prognosis: Good Rehab Potential: Good I certify that the patient requires SNF services.: No Overall status at discharge: patient is progressing back to baseline Pending Studies Resuscitation Status Do Not Resuscitate Diet Clear Liquid Diet Start Sat Marshall 6 [id number] Clonazepam (Klonopin) 4 mg PO QHS [facility] Last Admin: 04/22/20 20:40 Dose: 4 mg Documented by: Admin: 04/21/20 20:22 Dose: 4 mg Documented by: JENNIFER Hydralazine HCl (Apresoline) 10 mg IV Q2-4HP PRN PRN Reason: Hypertension Last Admin: 04/23/20 07:18 Dose: 10 mg Documented by: Admin: 04/22/20 20:39 Dose: 10 mg Documented by: Admin: 04/22/20 15:16 Dose: 10 mg Documented by: Admin: 04/22/20 11:49 Dose: 10 mg Documented by: HEBER Hydromorphone HCl (Dilaudid) 1 mg IV Q2HP PRN; Protocol PRN Reason: Per Pain Protocol Last Admin: 04/23/20 09:56 Dose: 1 mg Documented by: Admin: 04/23/20 03:05 Dose: 1 mg Documented by: Admin: 04/22/20 20:39 Dose: 1 mg Documented by: Admin: 04/22/20 16:35 Dose: 1 mg Documented by: Admin: 04/21/20 18:01 Dose: 1 mg Documented by: ANDRZEJIDENER Sodium Chloride (Sodium Chloride 0.9%) 1,000 mls @ 100 mls/hr IV .Q10H [facility] Last Admin: 04/23/20 11:40 Dose: 100 mls/hr Documented by: Infusion: 04/23/20 11:34 Dose: 100 mls/hr Documented by: Admin: 04/23/20 05:06 Dose: Not Given Documented by: Admin: 04/23/20 01:34 Dose: 100 mls/hr Documented by: Infusion: 04/23/20 01:16 Dose: 100 mls/hr Documented by: Admin: 04/22/20 15:16 Dose: 100 mls/hr Documented by: Infusion: 04/22/20 09:38 Dose: 100 mls/hr Documented by: Admin: 04/21/20 23:38 Dose: 100 mls/hr Documented by: Infusion: 04/21/20 23:38 Dose: 100 mls/hr Documented by: Admin: 04/21/20 13:51 Dose: 100 mls/hr Documented by: OLIVERIO Pantoprazole Sodium 80 mg/ (Sodium Chloride) 100 mls @ 10 mls/hr IV Q10H [facility] Last Admin: 04/23/20 12:15 Dose: Not Given Documented by: Admin: 04/23/20 02:55 Dose: 8 mg/hr, 10 mls/hr Documented by: Infusion: 04/23/20 02:40 Dose: 8 mg/hr, 10 mls/hr Documented by: Admin: 04/22/20 16:40 Dose: 8 mg/hr, 10 mls/hr Documented by: Infusion: 04/22/20 16:27 Dose: 8 mg/hr, 10 mls/hr Documented by: Admin: 04/22/20 06:27 Dose: 8 mg/hr, 10 mls/hr Documented by: Infusion: 04/22/20 06:23 Dose: 8 mg/hr, 10 mls/hr Documented by: Admin: 04/21/20 20:23 Dose: 8 mg/hr, 10 mls/hr Documented by: Infusion: 04/21/20 20:23 Dose: 8 mg/hr, 10 mls/hr Documented by: Infusion: 04/21/20 13:08 Dose: 8 mg/hr, 10 mls/hr Documented by: Infusion: 04/21/20 13:01 Dose: 0 mg/hr, 0 mls/hr Documented by: Admin: 04/21/20 11:03 Dose: 8 mg/hr, 10 mls/hr Documented by: EZEQUIEL Lamotrigine (Lamictal) 200 mg PO QHS [facility] Last Admin: 04/22/20 20:40 Dose: 200 mg Documented by: Admin: 04/21/20 20:23 Dose: 200 mg Documented by: JENNIFER Sucralfate (Carafate) 1 gm PO Q6 [facility] Last Admin: 04/23/20 12:14 Dose: 1 gm Documented by: Admin: 04/23/20 05:49 Dose: 1 gm Documented by: Admin: 04/22/20 23:44 Dose: 1 gm Documented by: Admin: 04/22/20 17:58 Dose: 1 gm Documented by: Admin: 04/22/20 11:53 Dose: 1 gm Documented by: Admin: 04/22/20 06:00 Dose: 1 gm Documented by: Admin: 04/21/20 23:38 Dose: 1 gm Documented by: Admin: 04/21/20 18:01 Dose: 1 gm Documented by: OLIVERIO Shift Summary 04/23/20 03:55 Shift Summary by Alyson Carver Patient alert and oriented x4. Slept well this shift. Medicated with Dilaudid 1mg x2 for chest/abd pain and headache with good effect. On IVF NS@100 infusing well on LAC. On Protonix drip 8mg /hr. IV on RAC kept saline locked. Tolerating Clear Liquid diet. Denies any nausea this shift. Up with cane and standby assist to the bathroom. Passing gas, no BM this shift. Had 2 units of RBC for hgb 7.5 yesterday= total 4 units of blood since admit. No signs of bleeding noted. Hx takes 6 aleve per day for chronic left foot pain. BP elevated last night 188/101mmHg, given PRN Hydralazine IV x1. BP 152/80mmHg this morning. On scheduled Carafate. Initialized on 04/23/20 03:55 - END OF NOTE
== END 2020-04-23 14:46 | disposition home or self-care (01) | DRG 381 ==
LOC: ED 04:33 → MEDSUR 12:55
PROVIDERS: ADMIT Family Medicine Adult Medicine; ATTEND Family Medicine Adult Medicine